=== PATIENT | female | born 1980 | race Two or more races ===

== ENCOUNTER 2021-04-02 04:56 | Inpatient (IN) | payer MEDICAID ==
[~2021-04-02] VITALS: Ht 157.5 cm; Wt 78.9 kg
[2021-04-02] MEDS ORDERED: BUTORPHANOL TARTRATE 2 MG/1 ML VIAL IV PRN ×2 (05:30)
[2021-04-02] MEDS ORDERED: miSOPROStol 100 mcg TAB SL ONE (05:30)
[2021-04-02] MEDS ORDERED: LIDOCAINE 2%HCL (LOCAL ANESTH.) INJ 20ML MDV IJ PRN (05:30)
[2021-04-02] MEDS ORDERED: WITCH HAZEL-GLYCERIN PAD TOP PRN (05:30)
[2021-04-02] MEDS ORDERED: LACT. RINGERS/OXYTOCIN 20UNITS 500 ML IV ONE (05:30)
[2021-04-02] MEDS ORDERED: DERMOPLAST 60ML BOTTLE TOP PRN (05:30)
[2021-04-02] MEDS ORDERED: PROMETHAZINE HCL 25 MG/ML 1ML IV PRN (05:30)
[2021-04-02] MEDS ORDERED: PENICILLIN G POT 5MIL/D5 50ML 50 ML IV ONE (05:30)
[2021-04-02] MEDS ORDERED: miSOPROStol 100 mcg TAB PR ONE (05:30)
[2021-04-02] MEDS ORDERED: CARBOPROST TROMETHAMINE 250 MCG/1ML VIAL IM PRN (05:30)
[2021-04-02] MEDS ORDERED: METHYLERGONOVINE MALEATE 0.2 MG/ML AMP IM PRN (05:30)
[2021-04-02] MEDS ORDERED: PHISODERM TOP SOLN 240ML BTL TOP PRN (05:30)
[2021-04-02] MEDS ORDERED: LACTATED RINGER'S 1,000 ML IV SCH (05:30)
[2021-04-02 06:07] LABS: Basophils # (auto) 0 10 ^3/uL (0-0.2); Basophils % (auto) 0.3 % (0.0-2.0); Eosinophils # (auto) 0 10 ^3/uL (0-0.8); Eosinophils % (auto) 0.4 % (0.0-7.0); Hematocrit 32.5 % (36.0-46.0); Hemoglobin 11.3 g/dL (12.2-16.2); Lymphocytes % (auto) 19.8 % (10.0-50.0); Mean Corpuscular Hemoglobin 31.8 pg (28.0-32.0); Mean Corpuscular Hgb Conc. 34.8 g/dL (32.0-36.0); Mean Corpuscular Volume 91.3 fL (80.0-100.0); Monocytes # (auto) 0.7 10 ^3/uL (0-1.3); Monocytes % (auto) 7.3 % (0.0-12.0); Neutrophils # (auto) 7.2 10 ^3/uL (1.6-8.6); Neutrophils % (auto) 72.2 % (37.0-80.0); Platelet Count (auto) 263 10^3/uL (140-450); Red Blood Cells 3.56 10^6/uL (4.0-5.20); Red Cell Distribution Width 14.3 % (11.8-14.3); White Blood Cell 9.9 10^3/uL (4.4-10.8)
[2021-04-02 06:17] LABS: Potassium 3.8 mmol/L (3.5-5.1)
[2021-04-02 06:25] LABS: Albumin 2.7 g/dL (3.4-5.0); BUN/Creatinine Ratio 24.5; Bilirubin, Total 0.6 mg/dL (0.2-1.0); Calcium 8.3 mg/dL (8.5-10.1); Total Protein 6.9 g/dL (6.4-8.2)
[2021-04-02 06:30] LABS: INR 0.94 (0.9-1.15); Partial Thromboplastin Time 24.9 sec (23.0-31.2)
[2021-04-02] MEDS ORDERED: IBUPROFEN 600 MG TAB PO PRN (09:00)
[2021-04-02] MEDS ORDERED: ACETAMINOPHEN 325 MG TAB PO PRN (09:00)
[2021-04-02] MEDS ORDERED: PENICILLIN G POTASSIUM 2,500,000 UNITS in D5W 5% 50 ML IV SCH (09:30)
[2021-04-02 10:28] VITALS: BP 133/87
[2021-04-02 10:31] VITALS: BP 133/87
[2021-04-02 12:14] LABS: Urine Bacteria NONE SEEN /hpf (None Seen); Urine Blood 3+ /uL (Negative); Urine Specific Gravity 1.027 (1.001-1.035); Urine WBC 5 /hpf (0 - 5)
[2021-04-02 12:38] LABS: Alcohol, Urine < 3.0 mg/dL (0-10); Amphetamine Screen, Urine NEGATIVE (NEGATIVE); Barbiturate Scree,Urine NEGATIVE (NEGATIVE); Benzodiazephine Screen, Urine NEGATIVE (NEGATIVE); Cannabinoid Screen, Urine NEGATIVE (NEGATIVE); Cocaine Screen, Urine NEGATIVE (NEGATIVE); Opiate Scree,Urine NEGATIVE (NEGATIVE); Phencyclidine Screen, Urine NEGATIVE (NEGATIVE)
[2021-04-02 14:37] VITALS: BP 122/69
[2021-04-02 19:10] VITALS: BP 106/56
[2021-04-02 22:45] VITALS: BP 101/59
[2021-04-03 03:00] VITALS: BP 116/55
[2021-04-03 07:30] VITALS: BP 113/80
[2021-04-03 10:30] VITALS: BP 128/74
[2021-04-04 06:06] LABS: RPR Non Reactive (Non Reactive)
== END 2021-04-03 12:15 | disposition home or self-care (01) | DRG 560 ==
LOC: LDRP 04:56 → OBSVTOIN 05:12 → LDRP 05:45
PROVIDERS: ADMIT Obstetrics & Gynecology; ATTEND Obstetrics & Gynecology
PROC: 10E0XZZ Delivery of Products of Conception, External Approach (ICD-10-PCS; principal; 2021-04-02)
PROC: 0KQM0ZZ Repair Perineum Muscle, Open Approach (ICD-10-PCS; 2021-04-02)
DX: O70.1 Second degree perineal laceration during delivery (principal); Z20.822 Contact with and (suspected) exposure to COVID-19; Z3A.40 40 weeks gestation of pregnancy; Z37.0 Single live birth
CPT/HCPCS: 36415; 59025; 59409; 80053; 80307; 81001; 81002; 85025; 85610; 85730; 86592; 86850; 86900; 86901; 87426; 96360; 96361; 96365; 96366; 96372; G0378; J2540; J2590; J7060